=== PATIENT | male | born 1960 | race Caucasian/White ===

== ENCOUNTER 2020-10-09 19:13 | Emergency (ER) | payer BC, SELFPAY ==
--- NOTE | ~2020-10-09 | XR_ITS ---
XR hand LT min 3V 10/09/2020 22:32 Indication: Left hand pain. Dog bites. Multiple lacerations. Procedure: 3 views left hand Comparison: No prior studies for comparison. Findings: There is a triangular foreign body overlying the first metacarpal neck. There is soft tissu e gas along the dorsal aspect of the hand, best seen on lateral view, consistent with lacerations. Mi ld polyarticular osteoarthritis. No acute fracture or traumatic malalignment. Impression: 1: No acute fracture. 2: Triangular foreign body measuring approximately 7 mm overlying the first metacarpal neck. Reviewed, dictated and finalized at location A. Impression: 1: No acute fracture. 2: Triangular foreign body measuring approximately 7 mm overlying the first me tacarpal neck.
[2020-10-09 19:32] VITALS: BP 134/108; PULSE 84; RESP 14; TEMP 36.6; O2SAT 99
--- NOTE | 2020-10-09 20:24 | ED.ANIMALBIT ---
HPI - Animal Bite General Chief Complaint: Animal Bite Stated Complaint: dog bite Time Seen by Provider: 10/09/20 20:08 Source: patient and family Mode of arrival: ambulatory Limitations: no limitations History of Present Illness HPI narrative: Patient is 60 years old white male got bitten by a pit bull dog prior to arrival to the emergency room. [place], found a pitbull dog wandering, tried to pet him then got attacked. Patient does not know the hot car operator of the dog or where is the location of the dog. Patient declined rabies vaccine and would like to have a tetanus shot. Related Data Home Medications Medication Instructions Recorded Confirmed temazepam 15 mg capsule See Rx Instructions .ROUTE .COMPLEX 04/01/19 cholecalciferol (vitamin D3) 50 50 mcg PO DAILY 07/18/20 07/18/20 mcg (2,000 unit) capsule oxycodone 10 mg tablet 10 mg PO Q8H PRN 07/18/20 07/18/20 sertraline 50 mg tablet 50 mg PO DAILY tablet 07/18/20 07/18/20 Allergies Allergy/AdvReac Type Severity Reaction Status Date / Time poison julieta extract Allergy Intermediate Verified 09/26/20 13:12 Review of Systems Review of Systems: Narrative: CONSTITUTIONAL: Denies fever, chills, or sweats. EYES: Denies visual changes, redness, or discharge. ENT: Denies rhinorrhea, congestion, sore throat, or otalgia. CARDIOVASCULAR: Denies chest pain, palpitations, or edema. RESPIRATORY: Denies cough or dyspnea. GASTROINTESTINAL: Denies abdominal pain, nausea, vomiting, or diarrhea. GENITOURINARY: Denies dysuria or hematuria. SKIN: Denies rash or itching. MUSCULOSKELETAL: Denies back pain, joint pain, or myalgia. NEUROLOGIC: Denies headache, numbness, or weakness. PSYCHIATRIC: Denies anxiety or depression. [facility] Past Medical History Medical History (Updated 10/09/20 @ 22:22 by Linnette Boyer MD) Acute arthritis Anxiety Chronic neck and back pain (Unknown) COVID-19 04/2020 Insomnia Screening cholesterol level Tinnitus Vitamin D deficiency Vitamin D deficiency disease Surgical History Surgical History History of right knee joint replacement 2018 History of umbilical hernia repair 2012 Family History Family History Other Family history of malignant neoplasm Social History Social History Smoking status: Former smoker Tobacco type: cigarettes Alcohol intake: current Substance use: never Substance use type: does not use Additional living arrangements comments: Live with Mother Gender identity (if verbalized by the patient): Male Exam Narrative: Exam Narrative: General appearance: Well-developed, well-nourished Skin: 3 cm laceration across right face, subcutaneous, 4 cm subcutaneous laceration dorsal left hand, few scattered puncture wounds left side upper lip and left hand. No active bleeding Head: Normocephalic, nontraumatic Eyes: Clear conjunctiva Chest and respiratory: Airway patent, no respiratory distress, no accessory muscle use Heart: Regular rate/rhythm Vascular: Normal peripheral pulses, normal capillary refill. Musculoskeletal: Normal range of motion, nontender back Neurologic: Alert and oriented ?3, [employer] is normal as tested, no gross motor deficit Course Course Emergency Course: Stable Reevaluation(s) Reevaluation #1: Patient declined rabies vaccine, also declined irrigation and cleaning of the hand laceration to remove the foreign body. Right facial dog bite/laceration was sutured, discussed with Dr. Houston. Left hand dog bite/laceration. No sutures Date:
[2020-10-09] MEDS: TETANUS,DIPHTHERIA,AC PERTUSSIS ADULT (0.5 ML) BOOSTRIX IM (20:56)
[2020-10-09] MEDS: HYDROcodone/acetaminophen (*CRX) 7.5-325 MG TABLET 1 TAB PO (22:15)
== END 2020-10-09 23:29 | disposition home or self-care (01) ==
PROVIDERS: Emergency Provider Emergency Medicine; PCP Family Medicine
DX: S01.85XA Open bite of other part of head, initial encounter (principal); S61.422A Laceration with foreign body of left hand, initial encounter; Z23 Encounter for immunization; W54.0XXA Bitten by dog, initial encounter
CPT/HCPCS: 12013; 73130; 90471; 90715; 99283; A9270

== ENCOUNTER 2023-12-01 12:41 | Outpatient (CLI) | payer BC, SELFPAY ==
[2023-12-01 15:12] LABS: Basophils Percent Auto 0.6 % (0.2-1.2); Eosinophils Absolute Auto 0.3 K/mm3 (0-0.3); Eosinophils Percent Auto 3.9 % (0-4.4); Hematocrit 40.7 % (42.0-52.0); Hemoglobin 12.9 g/dL (14.0-18.0); Immature Granulocyte Absolute 0.02 K/mm3 (0.00-0.031); Immature Granulocyte Percent A 0.3 % (0-0.5); Lymphocytes Absolute Auto 1.93 K/mm3 (0.9-3.2); Lymphocytes Percent Auto 28.8 % (18.3-44.2); Mean Corpuscular HGB Conc 31.7 g/dl (32-36); Mean Corpuscular Hemoglobin 28.5 pg (26-34); Mean Corpuscular Volume 89.8 fl (80-100); Monocytes Absolute Auto 0.8 K/mm3 (0.1-0.6); Monocytes Percent Auto 11.2 % (2.6-8.5); Neutrophils Absolute Auto 3.7 K/mm3 (1.3-6.7); Neutrophils Percent Auto 55.2 % (45.5-73.1); Platelet Count Result 292 k/mm3 (150-375); Red Blood Count 4.53 M/mm3 (4.6-6.20); Red Cell Distribution Width 12.2 % (11.5-14.5); White Blood Count 6.7 K/mm3 (4.5-10.0)
[2023-12-01 15:37] LABS: Alanine Aminotransferase 23 U/L (6-50); Albumin Level 4.4 g/dL (3.5-5.1); Alkaline Phosphatase 65 U/L (38-126); Anion Gap 8 mmol/L (4-12); Aspartate Amino Transferase 44 U/L (17-59); Bilirubin,Total 0.3 mg/dL (0.2-1.3); Blood Urea Nitrogen 21 mg/dL (9-20); Calcium 8.9 mg/dL (8.4-10.2); Carbon Dioxide 29 mmol/L (22-30); Chloride 100 mmol/L (98-107); Cholesterol 166 mg/dL (0-200); Estimated Glomerular Filt Rate > 60; Glucose 91 mg/dL (65-110); HDL Direct 64 mg/dL; Potassium 4.7 mmol/L (3.4-5.0); Sodium 137 mmol/L (137-145); Triglycerides 76 mg/dL (<150)
[2023-12-01 16:17] LABS: LDL Cholesterol Direct 88 mg/dL
[2023-12-03 15:08] LABS: PSA, Free 0.5 ng/mL; PSA, Total 2.7 ng/mL (< OR = 4.0); Percent Free Prostate Spec Ag 19 % (calc) (>25)
[2023-12-04 16:44] LABS: Vitamin D 1,25 (OH)2 Total 28 pg/mL (18-72); Vitamin D2 1,25 (OH)2 <8 pg/mL; Vitamin D3 1,25 (OH)2 28 pg/mL
== END 2023-12-01 12:42 | disposition home or self-care (01) ==
LOC: ANHGOSHLAB 12:42
PROVIDERS: PCP Family Medicine; Visit Provider Nurse Practitioner Family
DX: Z00.00 Encounter for general adult medical examination without abnormal findings (principal); R53.83 Other fatigue; E55.9 Vitamin D deficiency, unspecified; I10 Essential (primary) hypertension; Z12.5 Encounter for screening for malignant neoplasm of prostate
CPT/HCPCS: 36415; 80053; 80061; 82652; 84153; 84154; 84443; 85025